=== PATIENT | female | born 1990 | race Asian ===

== ENCOUNTER 2017-05-12 09:22 | Day surgery (SDC) | payer BC ==
[~2017-05-12 09:22] MED LIST: Buffered Lidocaine 0.9% SYRIN* 5 ML/SYR SYRINGE INTRADERM ONE
[2017-05-12] MEDS ORDERED: ceFAZolin 2 GM PREMIX (*) 2 GM/50 ML BAG IVPB ONE (09:35)
[2017-05-12] MEDS ORDERED: fentaNYL* 50 MCG/ML 2 ML VIAL (100 MCG VIAL) ONE (11:00)
[2017-05-12] MEDS ORDERED: Midazolam* 1 MG/ML 2 ML VIAL (2 MG) ONE (11:01)
[2017-05-12] MEDS ORDERED: Bupivacaine 0.25% SDV* 30 ML ONE (11:02)
[2017-05-12] MEDS ORDERED: Lidocaine 2% PF * 5 ML VIAL ONE (11:13)
[2017-05-12] MEDS ORDERED: Propofol* 10 MG/ML 20 ML BTL IV PUSH ONE (11:13)
[2017-05-12 11:40] VITALS: BP 126/88
--- NOTE | 2017-05-13 01:44 | OP ---
OPERATIVE REPORT: DATE OF OPERATION: 05/12/17 - ANGELITO DATE OF : 86 SURGEON: Boris Whipple MD OPERATOR RECEPTIONIST: None. ANESTHESIOLOGIST: Dr. Ray. ANESTHESIA: Local MAC. PRE-OP DIAGNOSIS: Symptomatic right thumb retained screw. POST-OP DIAGNOSIS: Symptomatic right thumb retained screw. OPERATIVE PROCEDURE: Removal of right thumb screw. INDICATIONS: Shavon had her fracture fixed with a subchondral screw lagging together the condyles and then the shaft was pinned. The pins have been removed long since and the fracture has nicely healed; however she is getting pain where the screws at in. X- rays have showed good healing of fracture, but some new lysis around the head head of the screw and so I talked to her about just taking it out, she agreed. EBL: 1 mL. COMPLICATIONS: None. FINDINGS: As expected. DESCRIPTION OF PROCEDURE: Shavon was seen in the preoperative holding area. The correct side and site were identified. We came back to the operating room. She got some anesthesia and I performed a digital block with 0.25% plain Marcaine. The hand was then prepped and draped in the usual fashion. A time- out was performed. The Tourni-Cot was placed on the thumb and left in place proximally. I opened her prior incision, which was a curvilinear incision. A full-thickness flap was raised down to the screw head, the 1.3 mm screwdriver was used to remove the screw, it came out uneventfully. We irrigated out the wound. Skin was closed with two 5-0 nylon sutures. The wound was dressed with Xeroform, 1-inch Anita, and a Coban dressing. She was taken to the recovery room in stable condition. The Tourni-Cot was removed. [id number]/[facility] #: [id number] MTDD
--- NOTE | 2017-05-16 14:54 | RAD ---
CPT II Codes: 6045F INDICATION: Right thumb proximal phalanx ORIF TECHNIQUE: Intraoperative fluoroscopy was provided during intramedullary screw removal. FINDINGS: 2 spot films depict anatomic alignment of the visualized bones. The medullary screw overlying the distal pole of the proximal right thumb phalanx has been removed. Fluoroscopy time: 5 seconds IMPRESSION: As above.
== END 2017-05-12 12:10 | disposition home or self-care (01) ==
LOC: OREAST 09:22
PROVIDERS: ATTEND Orthopaedic Surgery Hand Surgery
DX: T84.84XA Pain due to internal orthopedic prosthetic devices, implants and grafts, initial encounter (principal); Y83.1 Surgical operation with implant of artificial internal device as the cause of abnormal reaction of the patient, or of later complication, without mention of misadventure at the time of the procedure; M79.644 Pain in right finger(s); I10 Essential (primary) hypertension; I70.1 Atherosclerosis of renal artery; Q78.1 Polyostotic fibrous dysplasia
CPT/HCPCS: 76000; 81025; 88300; J0690; J2250; J2704; J3010

== ENCOUNTER 2018-12-17 18:58 | Emergency (ER) | payer BC ==
[2018-12-17] MEDS ORDERED: NS 0.9% 1000 ML** 1,000 ML IV.FLUID IV ONE (19:32)
--- NOTE | 2018-12-17 19:43 | ED ---
Complex/Multi-Sys Presentation - HPI Summary HPI Summary: This patient is a 28 year old F presenting to ED with a chief complaint of bruising progressing to fever and pain since two weeks ago. Two weeks ago patient was bruising easily along her thighs. Patient reports this has not happened in a long time. On 12/14/18 at work, patient felt like she had been punched in the kidney area. She reports nausea at the time and a bloody stool. On 12/15/18, patient noticed she had a fever. Patient reports headache that feels like a squeezing. 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 The patient rates the pain 9/10 in severity. Symptoms aggravated by nothing. Symptoms alleviated by nothing. Patient reports right-sided flank pain, COLLAZO, neck pain, fevers, chills, dizziness, bloody stool, bruising easily, and blood on oral thermometer , poor appetite. Patient denies cough, runny nose, dysuria. PMHx of kidney infection, fibromuscular dysplasia, anemia, angina, HTN, asthma, COLLAZO, migraines. PSHx of right thumb. FHx unknown as patient is adopted. Patient uses alcohol, quit tobacco but never substances. - History Of Current Complaint Chief Complaint: EDFever Time Seen by Provider: 12/17/18 19:30 Hx Obtained From: Patient Onset/Duration: Gradual Onset, Lasting Weeks - Since 2 weeks, Still Present, Worse Since Timing: Constant Severity Currently: Severe Location: Pain At: - Neck, COLLAZO, right-side flank Aggravating Factor(s): Nothing Alleviating Factor(s): Nothing Associated Signs And Symptoms: Positive: Dizziness, Headache, Fever. Negative: Cough - Allergies/Home Medications Allergies/Adverse Reactions: Allergies Allergy/AdvReac Type Severity Reaction Status Date / Time No Known Allergies Allergy Verified 12/17/18 19:19 Home Medications: Home Medications Acetaminophen [Tylenol] 975 mg PO Q8H PRN 12/17/18 [History Confirmed 12/17/18] Cholecalciferol TAB* [Vitamin D TAB*] 2,000 unit PO DAILY 12/17/18 [History Confirmed 12/17/18] PMH/Surg Hx/FS Hx/Imm Hx Endocrine/Hematology History: Reports: Hx Anemia - SOMETIMES HAS TOO LOW IRON LEVELS AND OTHER TIMES TOO HIGH Cardiovascular History: Reports: Hx Angina, Hx Hypertension - ON MEDICATION FOR , 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 Respiratory History: Reports: Hx Asthma History: Reports: Hx Kidney Infection - SPRING 2016, Other Problems/ Disorders - FIBROMUSCULAR DISEASE AFFECTING KIDNEYS Musculoskeletal History: Reports: Other Musculoskeletal History - SCOLIOSIS Sensory History: Reports: Hx Contacts or Glasses - BOTH- USE GLASSES DAY OF SURGERY Opthamlomology History: Reports: Hx Contacts or Glasses - BOTH- USE GLASSES DAY OF SURGERY Neurological History: Reports: Hx Headaches, Hx Migraine - HAS FIBROMUSCULAR DYSPLASIA, Other Neuro Impairments/Disorders Psychiatric History: Reports: Hx Anxiety, Hx Depression - Surgical History Surgery Procedure, Year, and Place: RIGHT THUMB SURGERY-07/2016 Hx Anesthesia Reactions: No Infectious Disease History: No Infectious Disease History: Denies: Traveled Outside the [place] in Last 30 Days - Family History Known Family History: Positive: Unknown - unknown. Pt is adopted. - Social History Alcohol Use: Occasionally Hx Substance Use: No Substance Use Type: Reports: None Hx Tobacco Use: Yes Smoking Status (MU): Former Smoker Amount Used/How Often: STATES BRIEFLY Have You Smoked in the Last Year: No Review of Systems Positive: Fever, Chills ENT: Negative - Runny nose, Other - Blood on oral thermometer Negative: Cough Gastrointestinal: Other - Poor appetite Positive: Other - Bloody stool Positive: flank pain - Right. Negative: burning, dysuria Musculoskeletal: Other - Neck pain Positive: Bruising Positive: Headache All Other Systems Reviewed And Are Negative: Yes Physical Exam - Summary Physical Exam Summary: Appearance: febrile, mildly tachycardic Skin: Warm, dry, no obvious rash Eyes: sclera anicteric, no conjunctival pallor ENT: mucous membranes moist Neck: deferred Respiratory: No signs of respiratory distress Cardiovascular: Appears well perfused, pulses are nml Abdomen: no CVA tenderness Musculoskeletal: Moving all 4 extremities without obvious discomfort Neurological: Awake and alert, mentation is normal, speech is fluent and appropriate Psychiatric: affect is normal, does not appear anxious or depressed Triage Information Reviewed: Yes Vital Signs On Initial Exam: Initial Vitals Temp Pulse Resp BP Pulse Ox 101.4 F 126 18 120/89 97 12/17/18 19:16 12/17/18 19:16 12/17/18 19:16 12/17/18 19:16 12/17/18 19:16 Vital Signs Reviewed: Yes Diagnostics - Vital Signs Vital Signs Temp Pulse Resp BP Pulse Ox 12/17/18 19:16 101.4 F 126 18 120/89 97 - Laboratory Result Diagrams: 12/17/18 19:43 12/17/18 19:43 Lab Statement: Any lab studies that have been ordered have been reviewed, and results considered in the medical decision making process. - Radiology CXR Radiology Interpretation Completed By: ED Physician Summary of Radiographic Findings: No acute processes, pending official radiology report. - Ultrasound No standard instances Ultrasound Interpretation Completed By: Radiologist Summary of Ultrasound Findings: Renal US: Minimal caliectasis with no visualized obstructing calculus. Dr. Jones has reviewed this radiology report. - EKG 1938 Cardiac Rate: Tachycardia - 115 BPM EKG Rhythm: Sinus Tachycardia ST Segment: Normal Summary of EKG Findings: Sinus tachycardia at 115 BPM, P waves, QRS complex, and T waves are within normal limits, T waves and intervals are normal, no ischemic changes. Re-Evaluation - Re-Evaluation First Eval Re-Evaluation Time: 23:42 Comment: Discussed results with patient. Patient will be discharged with dx of pyelonephritis. Patient understands and agrees with this plan. Complex Multi-Symp Course/Dx Course Of Treatment: This patient is a 28 year old F presenting to ED with a chief complaint of bruising progressing to fever and pain since two weeks ago. EKG revealed: Sinus tachycardia at 115 BPM, P waves, QRS complex, and T waves are within normal limits, T waves and intervals are normal, no ischemic changes. CXR revealed: No acute processes, pending official radiology report. In the ED course, patient received Tylenol, fluids, Zofran, and Toradol. Blood work and UA obtained. Renal US revealed: Minimal caliectasis with no visualized obstructing calculus. Patient will be discharged with dx of pyelonephritis. Patient understands and agrees with this plan. - Diagnoses Provider Diagnoses: Pyelonephritis Discharge - Sign-Out/Discharge Documenting (check all that apply): Patient Departure Patient Received Moderate/Deep Sedation with Procedure: No - Discharge Plan Condition: Stable Disposition: HOME Prescriptions: cefUROXime axetil [Cefuroxime] 250 mg PO BID #20 tablet Patient Education Materials: Kidney Infection (ED) Forms: *Work Release Referrals: Justina HOGAN,Valentin De La Cruz [Medical Doctor] - 3 Days (if not starting to improve) - Billing Disposition and Condition Condition: STABLE Disposition: Home - Attestation Statements Document Initiated by Preet: Yes Documenting Scribe: Tono Ulloa Provider For Whom Preet is Documenting (Include Credential): Kirk Jones MD Scribe Attestation: ITono, scribed for Kirk Jones MD on 12/18/18 at 0424. Scribe Documentation Reviewed: Yes Provider Attestation: The documentation as recorded by the arianeibeTono accurately reflects the service I personally performed and the decisions made by me, Kirk Jones MD Status of Scribe Document: Viewed
[2018-12-17] MEDS ORDERED: Acetaminophen TAB* 325 MG PO ONE (19:44)
[2018-12-17] MEDS ORDERED: Ondansetron INJ* 2 MG/ML VIAL IV ONE (19:53)
--- OUTSIDE RECORDS SUMMARY | 2018-12-17 20:01 | XMS REPORT ---
:1990 Author Organization Formerly [facility] Address [address] [place] [address] Care Team Providers Name Role Phone Tono Stein Unavailable Unavailable PROBLEMS Type Condition ICD9-CM Code [id number] Code Onset Condition SNOMED Code Dates Status Problem History of vitamin Z86.39 Active 818578129 A deficiency Problem Anxiety F41.9 Active 24242185 Problem Vitamin D E55.9 Active 43269318 deficiency Problem Fibromuscular I77.3 Active 348087077 dysplasia Problem Hx of non anemic Z86.39 Active 242185692 vitamin B12 deficiency Problem Migraine without G43.009 Active 278068850 aura and without status migrainosus, not intractable Problem Hypertension I15.1 Active 70898055 secondary to other renal disorders ALLERGIES No Information ENCOUNTERS Encounter Location Date Diagnosis [address], [place] [address], [place], [place] E55[place] [address], [place], [place] [address] other renal disorders I15.1 ; Fibromuscular dysplasia I77.3 ; Migraine without aura and without status migrainosus, not intractable G43.009 ; Anxiety F41.9 and Hx of non anemic vitamin B12 deficiency Z86.39 IMMUNIZATIONS No Known Immunizations SOCIAL HISTORY Never Assessed REASON FOR REFERRAL FUNCTIONAL STATUS PLAN OF CARE Activity Details Pending Test VITAMIN D,25-OH,TOTAL,IA VITAL SIGNS MEDICATIONS Medication Instructions Dosage Frequency Start End Date Duration Status Date Vitamin D 2000 Orally Once a 1 capsule 24h 20 November, Feb, 30 day(s) Active UNIT day 2018 2018 PROCEDURES No Known procedures RESULTS No Results REASON FOR VISIT Labs Insurance Providers [facility] Health Member Patient Patient Patient Patient Patient Subscriber Subscriber Subscriber Group Insurance Plan Plan Plan Plan ID Relationship Address Phone Name Date of ID Name Date of No Type Insurance Insurance Insurance Coverage to Subscriber Address Phone Name Dates BCBS [phone] BCBS self Shavon [id number] [facility] Plan [facility] Plan [id number] MEDICAL (GENERAL) HISTORY Type Description Date Medical History fibromuscular dysplasia Medical History HTN Medical History anxiety Medical History headache Medical History asthma Medical History multiple concussions Surgical History right finger surgery Surgical History right anckle surgery
--- OUTSIDE RECORDS SUMMARY | 2018-12-17 20:01 | XMS REPORT ---
:1990 Author Organization [facility] Address [address] [place] [address] Care Team Providers Name Role Phone Tono Stein Unavailable Unavailable PROBLEMS Type Condition ICD9-CM Code [id number] Code Onset Condition SNOMED Code Dates Status Problem History of vitamin Z86.39 Active 226667163 A deficiency Problem Anxiety F41.9 Active 68968426 Problem Vitamin D E55.9 Active 97741387 deficiency Problem Fibromuscular I77.3 Active 410289838 dysplasia Problem Hx of non anemic Z86.39 Active 184747100 vitamin B12 deficiency Problem Migraine without G43.009 Active 816104033 aura and without status migrainosus, not intractable Problem Hypertension I15.1 Active 55131795 secondary to other renal disorders ALLERGIES Substance Reaction Event Type Date Status Grass Mix Pollens Allergen Ext itchy Drug Allergy November, Active Lactose stomach pain Drug Allergy November, Active poplar treet itchy Non Drug Allergy November, Active ENCOUNTERS Encounter Location Date Diagnosis [address], [place] [address], [place], [place] [address], [place], [place] [address] other renal disorders I15.1 ; Fibromuscular dysplasia I77.3 ; Migraine without aura and without status migrainosus, not intractable G43.009 ; Anxiety F41.9 and Hx of non anemic vitamin B12 deficiency Z86.39 IMMUNIZATIONS No Known Immunizations SOCIAL HISTORY Never Assessed REASON FOR REFERRAL FUNCTIONAL STATUS PLAN OF CARE Activity Details Follow Up 4 Weeks Reason:pap/ blood pressure follow up VITAL SIGNS Temperature 97.5 degrees Fahrenheit 2018-11-16 Heart Rate 22 2018-11-16 Weight 162.1 2018-11-16 Height 62.4 in 2018-11-16 BMI 29.27 kg/m2 2018-11-16 Oximetry 97 % 2018-11-16 Blood pressure systolic 149 mm Hg 2018-11-16 Blood pressure diastolic 101 mm Hg 2018-11-16 MEDICATIONS Medication Instructions Dosage Frequency Start End Date Duration Status Date Topiramate 50 1 tab(s) Active mg Valsartan-Lane Orally Once a day 1 tablet 24h 30 day(s) Active chlorothiazide 80-12.5 MG Sertraline HCl Orally Once a day 1 tablet 24h 30 day(s) Active 50 MG PROCEDURES Procedure Date Ordered Result Body Site Brief emotional/behavioral assessment November 16, 2018 BODY MASS INDEX DOCD November 16, 2018 SMOKING + 2ND HAND ASSESSED November 16, 2018 Oxygen saturation results documented and reviewed November 16, 2018 BLOOD PRESSURE, MEASURED November 16, 2018 RESULTS Name Result Date Reference Range COMPREHENSIVE METABOLIC PANEL 2018-11-16 GLUCOSE 97 65-99 UREA NITROGEN (BUN) 12 7-25 CREATININE 0.60 0.50-1.10 eGFR NON-AFR. SUDANESE 122 > OR=60 eGFR 142 > OR=60 BUN/CREATININE RATIO NOT APPLICABLE 6-22 SODIUM 137 135-146 POTASSIUM 4.1 3.5-5.3 CHLORIDE 103 98-110 CARBON DIOXIDE 27 20-32 CALCIUM 9.5 8.6-10.2 PROTEIN, TOTAL 7.1 6.1-8.1 ALBUMIN 4.5 3.6-5.1 GLOBULIN 2.6 1.9-3.7 ALBUMIN/GLOBULIN RATIO 1.7 1.0-2.5 BILIRUBIN, TOTAL 0.4 0.2-1.2 ALKALINE PHOSPHATASE 73 33-115 AST 17 10-30 ALT 15 6-29 CBC (H/H, RBC, INDICES, WBC, PLT) 2018-11-16 WHITE BLOOD CELL COUNT 8.4 3.8-10.8 RED BLOOD CELL COUNT 4.90 3.80-5.10 HEMOGLOBIN 15.2 11.7-15.5 HEMATOCRIT 45.8 35.0-45.0 MCV 93.6 80.0-100.0 MCH 31.0 27.0-33.0 MCHC 33.1 32.0-36.0 RDW 12.7 11.0-15.0 PLATELET COUNT 348 140-400 MPV 8.3 7.5-12.5 VITAMIN B12/FOLATE, SERUM PANEL 2018-11-16 VITAMIN B12 [phone] FOLATE, SERUM 13.5 TSH W/REFLEX TO FT4 2018-11-16 TSH W/REFLEX TO FT4 2.26 VITAMIN D,25-OH,TOTAL,IA 2018-11-16 VITAMIN D,25-OH,TOTAL,IA 10 30-100 REASON FOR VISIT physical/medication , PVP:Pap HPV,PHQ2,Tobacco,BMI&FU,Tetanus-MW, PVP:RHIO, EARL,GAUTAM,HIV/STD.CM , declines HIV/STD.CM , patient needs a PAP schedule.CM , patient already had tetanus and flu shot donepreviews PCP GAUTAM REQUESTED.CM Insurance Providers [facility] Health Member Patient Patient Patient Patient Patient Subscriber Subscriber Subscriber Group Insurance Plan Plan Plan Plan ID Relationship Address Phone Name Date of ID Name Date of No Type Insurance Insurance Insurance Coverage to Subscriber Address Phone Name Dates BCBS [phone] BCBS self Shavon [id number] [place] [id number] [place] Plan [id number] MEDICAL (GENERAL) HISTORY Type Description Date Medical History fibromuscular dysplasia Medical History HTN Medical History anxiety Medical History headache Medical History asthma Medical History multiple concussions Surgical History right finger surgery Surgical History right anckle surgery
--- OUTSIDE RECORDS SUMMARY | 2018-12-17 20:01 | XMS REPORT ---
:1990 Author Organization [facility] Address [address] [place] [address] Care Team Providers Name Role Phone Tono Stein Unavailable Unavailable PROBLEMS Type Condition ICD9-CM Code [id number] Code Onset Condition SNOMED Code Dates Status Problem History of vitamin Z86.39 Active 897626579 A deficiency Problem Anxiety F41.9 Active 02102094 Problem Vitamin D E55.9 Active 13514977 deficiency Problem Fibromuscular I77.3 Active 614448161 dysplasia Problem Hx of non anemic Z86.39 Active 455789541 vitamin B12 deficiency Problem Migraine without G43.009 Active 525643189 aura and without status migrainosus, not intractable Problem Hypertension I15.1 Active 69196434 secondary to other renal disorders ALLERGIES No Information ENCOUNTERS Encounter Location Date Diagnosis [address], [place] [address], [place] [address], [place], [place] [place] [address], [place], [place] [address] other renal disorders I15.1 ; Fibromuscular dysplasia I77.3 ; Migraine without aura and without status migrainosus, not intractable G43.009 ; Anxiety F41.9 and Hx of non anemic vitamin B12 deficiency Z86.39 IMMUNIZATIONS No Known Immunizations SOCIAL HISTORY Never Assessed REASON FOR REFERRAL FUNCTIONAL STATUS PLAN OF CARE VITAL SIGNS MEDICATIONS Unknown Medications PROCEDURES No Known procedures RESULTS No Results REASON FOR VISIT Fibromuscular dysplasia question Insurance Providers [facility] Health Member Patient Patient Patient Patient Patient Subscriber Subscriber Subscriber Group Insurance Plan Plan Plan Plan ID Relationship Address Phone Name Date of ID Name Date of No Type Insurance Insurance Insurance Coverage to Subscriber Address Phone Name Dates Tuan [place] [phone] [place] [id number] Plan [id number] Plan [facility] [address] MEDICAL (GENERAL) HISTORY Type Description Date Medical History fibromuscular dysplasia Medical History HTN Medical History anxiety Medical History headache Medical History asthma Medical History multiple concussions Surgical History right finger surgery Surgical History right anckle surgery
[2018-12-17 20:21] LABS: Influenza A Molecular NEGATIVE (Negative); Influenza B Molecular NEGATIVE (Negative)
[2018-12-17 20:30] LABS: ABS Lymphocytes 0.7 10^3/ul (1.0-4.8); ABS Monocytes 0.5 10^3/ul (0-0.8); ABS Neutrophils 6.4 10^3/ul (1.5-7.7); Eosinophil % 0.1 %; Hematocrit 41 % (35-47); Hemoglobin 13.7 g/dL (12.0-16.0); Lymphocyte % 8.7 %; Mean Corpuscular HGB Conc 34 g/dL (31-36); Mean Corpuscular Hemoglobin 31 pg (27-31); Mean Corpuscular Volume 90 fL (80-97); Mean Platelet Volume 7.8 fL (7.4-10.4); Platelet Count 227 10^3/uL (150-450); Red Blood Count 4.49 10^6 /uL (3.70-4.87); Red Cell Distribution Width 13 % (10.5-15); White Blood Count 7.6 10^3/uL (3.5-10.8)
[2018-12-17 20:38] LABS: Activated Partial Thrombo Time 33.9 seconds (26.0-38.0); INR 1.2 (0.82-1.09)
[2018-12-17 20:47] LABS: ALT 22 U/L (7-52); AST 24 U/L (13-39); Albumin/Globulin Ratio 1.3 (1-3); Alkaline Phosphatase 76 U/L (34-104); Anion Gap 10 mmol/L (2-11); Blood Urea Nitrogen 12 mg/dL (6-24); C Reactive Protein 129.93 mg/L (<8.01); CO2 Carbon Dioxide 23 mmol/L (22-32); Calcium 8.8 mg/dL (8.6-10.3); Chloride 99 mmol/L (101-111); EGFR African American 109.8 (>60); EGFR Non-African American 90.7 (>60); Globulin 3.2 g/dL (2-4); Glucose 118 mg/dL (70-100); Potassium 3.5 mmol/L (3.5-5.0); Sodium 132 mmol/L (135-145); Total Protein 7.2 g/dL (6.4-8.9)
[2018-12-17 20:54] LABS: HCG Pregnancy < 0.60 mIU/mL
[2018-12-17] MEDS ORDERED: Ketorolac INJ* 30 MG/ML 1 ML VIAL IV PUSH ONE (21:41)
[2018-12-17 22:08] LABS: Urine Appearance Cloudy; Urine Bacteria 2+ (Absent); Urine Bilirubin Negative (Negative); Urine Blood 2+ (Negative); Urine Color Yellow; Urine Glucose Negative (Negative); Urine Ketones 2+ (Negative); Urine Nitrite Positive (Negative); Urine Protein 1+(30 mg/dL) (Negative); Urine Red Blood Cell 2+(6-10/hpf) (Absent); Urine Specific Gravity 1.016 (1.010-1.030); Urine Squamous Epithelial Cell Present (Absent); Urine Urobilinogen Negative (Negative); Urine White Blood Cell 3+(>20/hpf) (Absent)
[2018-12-17] MEDS ORDERED: cefTRIAXone(*) 1 GM in NS 0.9% 50 ML* 50 ML IVPB ONE (22:15)
[2018-12-18 00:05] VITALS: BP 118/74
--- NOTE | 2018-12-21 07:04 | PN ---
Progress Note - Progress Note Date of Service: 12/17/18 Note: Urine culture final grew Escherichia coli 100,000 Patient was placed on cefuroxime prior to discharge second generation cephalosporin appears to be sensitive
== END 2018-12-18 00:04 | disposition home or self-care (01) ==
LOC: ED 18:58
DX: N12 Tubulo-interstitial nephritis, not specified as acute or chronic (principal); R50.9 Fever, unspecified; R42 Dizziness and giddiness; R51 Headache; I10 Essential (primary) hypertension; Z87.891 Personal history of nicotine dependence; M54.2 Cervicalgia
CPT/HCPCS: 36415; 71046; 76775; 80053; 81003; 81015; 83605; 84484; 84702; 85025; 85610; 85730; 86140; 86618; 87040; 87077; 87086; 87186; 93005; 96374; 96375; 99285; A9270-GY; J0696; J1885; J2405